=== PATIENT | male | born 1955 | race Caucasian/White ===

== ENCOUNTER → 2017-07-25 | Outpatient (CLI) | payer MEDICARE, OTHER ==
[2017-03-16 11:00] VITALS: BP 124/75
[~2017-07-25] MED LIST: CARI350T14 PO; DEXT10TA2 PO; FINA5TAB4 PO; FLUO20CA8 PO; GADOBUTROL 10 MMOL/10 ML VIAL IV ONE; LAMO200T2 PO; LEVO100T5 PO; LOSA1TAB19 PO; MELO15TA23 PO; MORP30TA PO; OLAN20TA7 PO; OMEP40CA5 PO; RISP3TAB3 PO; SIMV40TA3 PO; TAMS0.4C2 PO; ZOLP10TA4 PO
--- NOTE | 2017-07-25 09:08 | RAD ---
MRI Brain with and without contrast History: Lung cancer Technique: Multiplanar, multi sequential pre and postcontrast MR imaging was performed of the brain. Contrast: 10 cc Gadavist Comparison: None Findings: There is mild motion. There is no evidence of recent infarct or cytotoxic edema. The ventricles, sulci, and cisterns are within normal limits in size and configuration. There is no significant midline shift, intraaxial mass effect, or focal abnormal extra-axial fluid collection. There is very minimal T2 and FLAIR hyperintense signal of the periventricular white matter and couple of small foci in the deep white matter not associated with enhancement, may be seen with very minimal gliosis such as related to chronic microvascular ischemic disease. There is no nodular parenchymal or leptomeningeal enhancement. There is preservation of the major intracranial flow-voids at the skull base. The cerebellar tonsils are normal in location. There is no significant abnormality of the pineal gland or pituitary gland. Paranasal sinuses are mostly aerated, minimal patchy ethmoid air cell and maxillary sinus mucosal thickening. The mastoid air cells are mostly aerated, small focus of fluid on right. There is preserved marrow signal of the clivus. Impression: 1. There is no abnormal intracranial enhancement. Electronically signed by: Serg Castañeda MD (07/25/2017 9:04 AM) [id number]
== END | disposition home or self-care (01) ==
LOC: MRI 07:58
PROVIDERS: ATTEND Internal Medicine Hematology & Oncology
DX: C34.12 Malignant neoplasm of upper lobe, left bronchus or lung (principal)
CPT/HCPCS: 70553; A9585

== ENCOUNTER 2017-08-09 08:19 | Outpatient (CLI) | payer MEDICARE, OTHER ==
[2017-08-09 09:11] LABS: ADD MAN DIFF? NO
[2017-08-09 09:24] LABS: ANION GAP 8 (6-14); BASO % 1 % (0-3); BLOOD UREA NITROGEN 28 mg/dL (8-26); CALCIUM 9.1 mg/dL (8.5-10.1); CARBON DIOXIDE 31 mmol/L (21-32); CHLORIDE 103 mmol/L (98-107); CREATININE 1.1 mg/dL (0.7-1.3); EOS % 0 % (0-3); GFR 68.1; GLUCOSE 116 mg/dL (70-99); HEMATOCRIT 33.9 % (39.0-53.0); HEMOGLOBIN 11.2 g/dL (13.0-17.5); LYMPH # 1.6 x10^3/uL (1.0-4.8); LYMPH % 52 % (24-48); MEAN CORPUSCULAR HEMOGLOBIN 31 pg (25-35); MEAN CORPUSCULAR HGB CONC 33 g/dL (31-37); MEAN CORPUSCULAR VOLUME 94 fL (79-100); MONO # 0.1 x10^3/uL (0.0-1.1); MONO % 3 % (0-9); NEUT # 1.4 x10^3uL (1.8-7.7); NEUT % 45 % (31-73); PLATELET COUNT 92 x10^3/uL (140-400); POTASSIUM 4.5 mmol/L (3.5-5.1); RED CELL DISTRIBUTION WIDTH 17.1 % (11.5-14.5); SODIUM 142 mmol/L (136-145); WHITE BLOOD COUNT 3.1 x10^3/uL (4.0-11.0)
[2017-08-09 09:35] LABS: PROTHROMBIN TIME PATIENT 12.9 SEC (11.7-14.0)
[2017-08-09] MEDS ORDERED: LIDOCAINE 2%/EPI 1:100,000 20 ML VIAL. (10:27)
[2017-08-09] MEDS ORDERED: HEPARIN PF 500 UNIT/5 ML DISP.SYRIN. IV ×2 (10:32→11:15)
[2017-08-09] MEDS ORDERED: fentaNYL PF VIAL 100 MCG/2 ML VIAL (10:54)
[2017-08-09] MEDS ORDERED: MIDAZOLAM HCL/PF 5 MG/5 ML VIAL. (10:54)
[2017-08-09] MEDS: LIDOCAINE 2%/EPI 1:100,000 20 ML VIAL. IJ (11:31)
[2017-08-09] MEDS: MIDAZOLAM HCL/PF 5 MG/5 ML VIAL. IV (11:32)
[2017-08-09] MEDS: fentaNYL PF VIAL 100 MCG/2 ML VIAL IV (11:32)
[2017-08-09] MEDS: HEPARIN PF 500 UNIT/5 ML DISP.SYRIN. IV (11:33)
== END 2017-08-09 13:30 | disposition home or self-care (01) ==
LOC: INTRAD 08:19
DX: C34.90 Malignant neoplasm of unspecified part of unspecified bronchus or lung (principal); E78.00 Pure hypercholesterolemia, unspecified; I10 Essential (primary) hypertension; F17.200 Nicotine dependence, unspecified, uncomplicated; D64.9 Anemia, unspecified; Z87.39 Personal history of other diseases of the musculoskeletal system and connective tissue; Z86.39 Personal history of other endocrine, nutritional and metabolic disease; Z79.01 Long term (current) use of anticoagulants
CPT/HCPCS: 36415; 36561; 76937; 77001; 80048; 85025; 85610; 99152; 99153; C1751; C1892; J0690; J2250; J3010; J3490

== ENCOUNTER → 2017-08-15 | Outpatient (CLI) | payer MEDICARE, OTHER | END | disposition home or self-care (01) | LOC: PETSC 06:28 | DX: C34.12 Malignant neoplasm of upper lobe, left bronchus or lung (principal) | CPT/HCPCS: 78815; A9552 ==

== ENCOUNTER → 2017-08-26 | Outpatient (CLI) | payer MEDICARE, OTHER | END | disposition home or self-care (01) | LOC: US 11:48 | DX: M25.442 Effusion, left hand (principal); M79.89 Other specified soft tissue disorders | CPT/HCPCS: 93971 ==

== ENCOUNTER → 2017-12-05 | Outpatient (CLI) | payer MEDICARE, OTHER | END | disposition home or self-care (01) | LOC: PETSC 14:57 | DX: C34.12 Malignant neoplasm of upper lobe, left bronchus or lung (principal); K57.30 Diverticulosis of large intestine without perforation or abscess without bleeding; Z45.2 Encounter for adjustment and management of vascular access device | CPT/HCPCS: 78815; A9552 ==

== ENCOUNTER → 2018-02-13 | Outpatient (CLI) | payer MEDICARE, OTHER | END | disposition home or self-care (01) | LOC: PETSC 14:23 | DX: C34.12 Malignant neoplasm of upper lobe, left bronchus or lung (principal) | CPT/HCPCS: 78815; A9552 ==

== ENCOUNTER → 2018-04-17 | Outpatient (CLI) | payer MEDICARE, OTHER ==
[2017-08-09 12:30] VITALS: BP 106/65
[~2018-04-17] MED LIST changes: +CHOL10003 PO; +DOCO1CAP2 PO; +FOLI1TAB16 PO; -GADOBUTROL 10 MMOL/10 ML VIAL IV ONE; +MORP100T30 PO; +TEST200V3 IM
--- NOTE | 2018-04-17 10:00 | RAD ---
FDG tumor localization scan, PET/CT, 04/17/2018: History: Restaging lung cancer Following IV injection of 13.3 mCi of 18 F-FDG, imaging was performed from the skull base to the proximal fossa. The noncontrast CT component was performed for attenuation correction and anatomic localization purposes rather than for primary diagnosis. The patient's blood glucose level at the time of injection was 126 MG/DL. Comparison is made to a study from 02/13/2018. The left upper lobe hypermetabolic mass has increased in size. It currently measures 7.4 x 5.4 cm on the axial scans compared to a maximum diameter of 5.8 cm on the previous study. There appears to be extension into the superior segment left lower. An elongated anterior extension of this density has thickened slightly. The maximum SUV is 11.0 compared to value of 10.4 on the previous study. This process is inseparable from hypermetabolic tissue at the left hilum. There is a separate 12 mm hypermetabolic node along the lateral aspect of the AP window which appears to have increased slightly in size. It demonstrates a maximum SUV of 6.0, similar to on the previous study. No new mediastinal adenopathy is seen. The right lung is unremarkable. Physiologic activity is present in the neck. No hypermetabolic neck lesion is seen. Normal GI tract and urinary tract activity is present in the abdomen and pelvis. No hypermetabolic abdominal or pelvic lesion is seen. IMPRESSION: 1. Enlarging hypermetabolic left upper lobe pulmonary malignancy. 2. Minimal AP window adenopathy has also progressed slightly. 3. No distant metastatic disease is identified.
== END | disposition home or self-care (01) ==
LOC: PETSC 07:22
PROVIDERS: ATTEND Internal Medicine Hematology & Oncology
DX: C34.12 Malignant neoplasm of upper lobe, left bronchus or lung (principal); R59.0 Localized enlarged lymph nodes; I10 Essential (primary) hypertension; E78.00 Pure hypercholesterolemia, unspecified; E87.6 Hypokalemia; Z86.2 Personal history of diseases of the blood and blood-forming organs and certain disorders involving the immune mechanism; Z87.891 Personal history of nicotine dependence; Z86.39 Personal history of other endocrine, nutritional and metabolic disease; Z87.39 Personal history of other diseases of the musculoskeletal system and connective tissue; Z82.49 Family history of ischemic heart disease and other diseases of the circulatory system; Z80.0 Family history of malignant neoplasm of digestive organs; Z80.1 Family history of malignant neoplasm of trachea, bronchus and lung
CPT/HCPCS: 78815; A9552

== ENCOUNTER → 2018-06-03 | Day surgery (SDC) | payer MEDICARE, OTHER ==
[~2018-06-03] MED LIST changes: +IV RINGERS,LACTATED 1000ML 1,000 ML IV SCH; +PROPOFOL 20 ML IV ONE; +PROPOFOL 40 ML IV ONE
[2018-06-03 16:25] VITALS: BP 104/55
--- NOTE | 2018-06-05 16:08 | PATHOLOGY ---
[facility] Accession Number: [id number] . 01 Material submitted: . TRANSVERSE COLON POLYP . 01 Clinical history: . Hx polyps . 02 Diagnosis: Transverse, biopsy: - Adenomatous polyp. . (SKM:yenny; 06/05/2018) MBR/06/05/2018 . 02 Electronically signed: . Stefan Rivera MD, Pathologist NPI- [id number] . 01 Gross description: . Received in formalin labeled "Timmy Murphy Jr, transverse colon polyp," are multiple segments of garcia soft tissue admixed with vegetative material measuring 2.5 x 1.9 x 0.2 cm in aggregate dimensions. The specimen is filtered and entirely submitted in cassette A1. (TSD; 06/04/2018) TOB/TOB . 02 Pathologist provided ICD-10: D12.3 . 02 CPT . 585753 Specimen Comment: A courtesy copy of this report has been sent to Specimen Comment: [phone]. Specimen Comment: Report sent to Performed at: 01 [facility] [address] [facility] [address], [place] [id number] MD Andrew Miramontes MD Phone: [phone] Performed at: [facility] [address] [place], [place] [id number] MD Navin Flynn MD Phone: [phone]
== END | disposition home or self-care (01) ==
LOC: ENDOS 15:02
PROVIDERS: ATTEND Internal Medicine Gastroenterology
DX: Z12.11 Encounter for screening for malignant neoplasm of colon (principal); D12.3 Benign neoplasm of transverse colon; K64.0 First degree hemorrhoids; K22.2 Esophageal obstruction; K29.50 Unspecified chronic gastritis without bleeding; I10 Essential (primary) hypertension; E03.9 Hypothyroidism, unspecified; F41.9 Anxiety disorder, unspecified; E78.00 Pure hypercholesterolemia, unspecified; K21.9 Gastro-esophageal reflux disease without esophagitis; N40.0 Benign prostatic hyperplasia without lower urinary tract symptoms; M19.90 Unspecified osteoarthritis, unspecified site; Z86.010 Personal history of colon polyps; Z85.118 Personal history of other malignant neoplasm of bronchus and lung; Z82.49 Family history of ischemic heart disease and other diseases of the circulatory system; Z83.71 Family history of colonic polyps; Z72.0 Tobacco use; Z79.899 Other long term (current) drug therapy; Z98.890 Other specified postprocedural states
CPT/HCPCS: 43235; 43450; 45385; 88305; J2704; 45380

== ENCOUNTER → 2018-07-17 | Outpatient (CLI) | payer MEDICARE, OTHER ==
[2018-06-03 16:25] VITALS: BP 104/55
[~2018-07-17] MED LIST changes: -IV RINGERS,LACTATED 1000ML 1,000 ML IV SCH; -PROPOFOL 20 ML IV ONE; -PROPOFOL 40 ML IV ONE
--- NOTE | 2018-07-17 15:14 | RAD ---
PET ONCOLOGY CLINICAL INDICATION: Lung cancer PET for subsequent treatment strategy. FDG PET-CT of the Body TECHNIQUE: The patient received an IV injection of 14.4 mCi 18F-FDG. After an initial uptake phase of approximately 60-90 minutes, a CT scan without oral contrast, without IV contrast was acquired. Subsequently, positron emission tomography images from the skull base to mid thigh were obtained. CT, PET and fused images were reconstructed in transaxial, coronal, and sagittal projections and interpreted from a workstation. The patient's plasma glucose was 157 mg/dl. PRIOR STUDIES: 04/17/2018 CORRELATIVE STUDIES: There are no appropriate correlative studies FINDINGS: CT: Limited exam due to lack of IV contrast. Noncontrast sections through the brain and orbits are within normal limits. No enlarged cervical adenopathy. Heart is normal in size. No pericardial or pleural effusion. Interval increase in the size of left upper lobe mass measuring 7.6 x 6.8 cm, previously 7.0 x 5.6 cm. There is worsening of suprahilar component of this mass measuring 11.1 x 4.3 cm, previously 9.1 x 4.0 cm. Aortopulmonary recess lymph node is seen measuring 2.0 x 1.2 cm, previously 1.7 x 1.0 cm. Evaluation of hilar lymphadenopathy is limited due to lack of IV contrast. No axillary adenopathy. Mild diffuse emphysema. Evaluation of lungs is limited due to breathing motion artifact. No pneumothorax. Noncontrast appearance of the liver, spleen, gallbladder, pancreas, adrenals and kidneys within normal limits. No enlarged retroperitoneal or pelvic adenopathy. No free pelvic fluid or ascites. No bowel obstruction. Urinary bladder demonstrates no radiopaque stones. No lytic or blastic osseous lesions. Interval increase in the size of medial left apical soft tissue nodule measuring 2.0 x 1.6 m, previously 1.1 x 0.9 cm. PET: Increased metabolic activity in the Left medial apical soft tissue nodule with SUV max of 5.2. Increased metabolic activity in the Left upper lobe mass with SUV max of 6.2. Increased metabolic activity in the aortopulmonary recess lymph node with SUV max of 7.2. Increased metabolic activity in the suprahilar component of the left upper lobe mass with SUV max of 8.9. IMPRESSION: 1. Interval increase in the size of left upper lobe mass with suprahilar component as described above. 2. Multiple sites of increased metabolic activity as described above. Electronically signed by: Cedric Mitchell DO (07/17/2018 3:10 PM) [facility]
== END | disposition home or self-care (01) ==
LOC: PETSC 09:41
PROVIDERS: ATTEND Internal Medicine Hematology & Oncology
DX: C34.12 Malignant neoplasm of upper lobe, left bronchus or lung (principal); R91.8 Other nonspecific abnormal finding of lung field
CPT/HCPCS: 78815; A9552

== ENCOUNTER → 2018-10-16 | Outpatient (CLI) | payer MEDICARE, OTHER ==
[2018-06-03 16:25] VITALS: BP 104/55
[~2018-10-16] MED LIST changes: +OLAN20TA15 PO; -OLAN20TA7 PO
--- NOTE | 2018-10-16 10:27 | RAD ---
FDG tumor localization scan, PET/CT, 10/16/2018: History: Restaging lung cancer Following IV injection of 14.7 mCi of 18 F-FDG, imaging was performed from the skull base to the proximal thighs. The noncontrast CT component was performed for attenuation correction and anatomic localization purposes rather than for primary diagnosis. The patient's blood glucose level at time of injection was 147 MG/DL. Comparison is made to a study from 07/17/2018. There is extensive muscular uptake on the current exam on a technical basis. This degree of muscular uptake presumably hinders accurate comparison of the current SUV values with the previous study. A large lobulated hypermetabolic left upper lobe mass is again identified. It is of similar size and configuration when compared to the 07/17/2018 exam. It measures approximate 7.5 cm in greatest width. Its maximum SUV is currently 9.5 compared to value 11.2 on the previous study. A separate hypermetabolic mass is present medially in the left apex. It has increased in size since the previous study currently measuring 2.8 cm in AP dimension compared to 2.3 cm on the previous study. Its maximum SUV is 5.7 compared to a value of 6.7 on the previous study. On the previous study a small hypermetabolic lymph node was present along the lateral aspect of the AP window. It measured 12 x 18 mm with a maximum SUV of 7.9. That node has decreased in size and is no longer hypermetabolic. It measures 6 mm in width on the current exam. No new hypermetabolic lesion is identified in the chest. Physiologic activity is evident in the neck. Normal GI tract and urinary tract activity is present in the abdomen and pelvis. No hypermetabolic abdominal or pelvic lesion is seen. IMPRESSION: Mixed response to therapy with 1. No definite change in the large left upper lobe hypermetabolic pulmonary mass. 2. Regression of a small hypermetabolic AP window lymph node. 3. Slight interval increase in size of a separate medial left apical pulmonary mass.
== END | disposition home or self-care (01) ==
LOC: PETSC 07:41
PROVIDERS: ATTEND Internal Medicine Hematology & Oncology
DX: C34.12 Malignant neoplasm of upper lobe, left bronchus or lung (principal); R91.8 Other nonspecific abnormal finding of lung field; R53.83 Other fatigue
CPT/HCPCS: 78815; A9552

== ENCOUNTER → 2018-12-25 | Outpatient (CLI) | payer MEDICARE, OTHER ==
[2018-06-03 16:25] VITALS: BP 104/55
--- NOTE | 2018-12-25 12:37 | RAD ---
FDG tumor localization scan, PET/CT, 12/25/2018: History: Restaging lung cancer Following IV injection of 15.6 mCi of 18 F-FDG, imaging was performed from the skull base to the proximal thighs. The noncontrast CT component was performed for attenuation correction and anatomic localization purposes rather for primary diagnosis. The patient's blood glucose level at the time of injection was 131 MG/DL. Comparison is made to a study from 10/16/2018. The large left upper lobe mass has increased slightly in size. On the axial images it currently measures 8.0 cm in greatest width compared to a measurement of 7.5 cm on the previous study. The maximum SUV within this mass is currently 14.7 compared to a value of 9.5 on the previous study. The separate mass in the medial aspect of the left apex has also increased slightly in size currently measuring 3.0 x 2.6 cm compared to a measurement of 2.7 x 2.3 cm on the previous study. Its maximum SUV is 9.6 compared to a value of 5.7 on the previous study. There is low level FDG uptake related to an AP window lymph node with a maximum SUV of 3.4. This node or node clusters of similar size when compared to the previous study, measuring approximately 13 mm in short axis dimension. No abnormal FDG uptake was seen at this level on the previous study. Note is made that there was extensive muscular uptake on the previous study which may have decreased FDG uptake by pathologic lesions on that study. Normal GI tract and urinary tract activity is present in the abdomen and pelvis. No hypermetabolic abdominal or pelvic mass is seen. Incidental CT findings include the presence of emphysematous changes in the lungs. There are scattered streaky linear opacities compatible with scarring. A right Port-A-Cath extends into the superior vena cava. IMPRESSION: 1. Slight interval increase in size of the left upper lobe and left apical masses with increasing FDG uptake. 2. Low level FDG uptake has developed in a mildly enlarged AP window lymph node. 3. No distant metastatic disease is detected. Physiologic activity is present in the neck. No abnormal FDG uptake is seen in the neck.
== END | disposition home or self-care (01) ==
LOC: PETSC 09:36
PROVIDERS: ATTEND Internal Medicine Hematology & Oncology
DX: C34.12 Malignant neoplasm of upper lobe, left bronchus or lung (principal); J43.9 Emphysema, unspecified; R91.8 Other nonspecific abnormal finding of lung field
CPT/HCPCS: 78814; A9552

== ENCOUNTER → 2019-04-02 | Outpatient (CLI) | payer MEDICARE, OTHER ==
[2018-06-03 16:25] VITALS: BP 104/55
--- NOTE | 2019-04-03 11:11 | RAD ---
Examination: PET W CT SKULL TO MIDTHIGH HISTORY: Lung cancer restaging COMPARISON/CORRELATION: 12/25/2018 PET/CT exam FINDINGS: Net dose 14.1 mCi F-18 FDG was administered intravenously for purposes of PET/CT exam. Blood glucose level at the time of radiotracer administration was 120 mg/dL. Imaging was performed from the skull base to the proximal thighs. Hepatic reference uptake is SUV max of 2.2 . Uptake of radiotracer involving the partially visualized head and neck is unremarkable. At the left apical level medially, there is increase in size of the mass which was previously seen. Currently it measures up to 3.5 cm x 3.4 cm and this represents interval increase by 0.7 cm. Uptake of the margin of this mass is noted with SUV max of 4.7. Central lack of uptake presumably representing necrotic components are evident. Mass involving the left upper thorax abutting the pleura is present posteriorly. This mass abuts the thoracic aorta at the distal arch. It measures up to 9.3 cm x 8.1 cm. This represents increase in size by 1.5 cm in the axial plane. This mass extends to the left hilum as on the prior exam. SUV maximum periphery of this mass of up to 9.2 is evident. Central lack of uptake of radiotracer is evident presumably representing necrotic components. There is no pulmonary window lymph nodes are again evident without significant change in size. SUV max of up to 2.6 is evident involving these lymph nodes. Emphysematous involvement of the lung stein is noted. No new pulmonary nodule or new infiltrate. Slight increase of a small left pleural effusion is noted in the interval. Uptake of radiotracer involving the abdomen and pelvis is unremarkable. Deformity of the right iliac bone near the sacrum is again noted. Correlate with previous intervention. IMPRESSION: Increase in size of the left lung masses with uptake in the periphery consistent with active neoplastic disease. Increased in small left pleural effusion. No significant change in the aorticopulmonary window lymph nodes. No new sites of abnormal radiotracer uptake. PQRS Compliance Statement: One or more of the following individualized dose reduction techniques were utilized for this examination: 1. Automated exposure control 2. Adjustment of the mA and/or kV according to patient size 3. Use of iterative reconstruction technique Electronically signed by: Jarad Hogan MD (04/03/2019 11:08 AM) [facility]
== END | disposition home or self-care (01) ==
LOC: PETSC 08:47
PROVIDERS: ATTEND Internal Medicine Hematology & Oncology
DX: C34.12 Malignant neoplasm of upper lobe, left bronchus or lung (principal); R91.8 Other nonspecific abnormal finding of lung field; J90 Pleural effusion, not elsewhere classified; J43.9 Emphysema, unspecified
CPT/HCPCS: 78815; A9552

== ENCOUNTER → 2019-05-29 | Outpatient (CLI) | payer MEDICARE, OTHER ==
[2018-06-03 16:25] VITALS: BP 104/55
[~2019-05-29] MED LIST changes: +OMEP40CA45 PO; -OMEP40CA5 PO
--- NOTE | 2019-05-31 11:37 | RAD ---
EXAM: PET/CT SKULL BASE TO MID THIGH. HISTORY: Lung cancer, restaging COMPARISON: 04/02/2019. TECHNIQUE: CT was performed from the skull base through the mid thighs for the purposes of attenuation correction. 13.87 mCi F-18 fluorodeoxyglucose (FDG) was administered intravenously. After an uptake period, positron emission tomography was performed from the skull base through the mid thighs. The PET and CT data were fused and interpreted in combination a dedicated workstation. Blood glucose level was 118 mg/dL at the time of FDG administration. FINDINGS: A large left upper lobe mass abutting the posterior and medial pleura measures 8.9 x 8.2 cm. Previously this measured 9.0 x 9.2 cm. This is contiguous with enlarged left hilar lymph nodes. It is centrally hypometabolic consistent with necrosis. Maximum SUV is 12.3. Hypermetabolism extends inferiorly along the left lateral pleura and major fissure, and into the lingula in the regions that measure proximally 6 cm in each. This may represent postobstructive pneumonitis or additional neoplasm. Maximum SUV is 11.2. Another mass in the left apex is inseparable from the superior mediastinal pleura and measures 3.9 x 3.7 cm as compared with 3.6 x 3.7 cm previously. It is centrally hypometabolic consistent with necrosis. Maximum SUV is 8.1. A small focus of uptake along the lateral margin of the left pectoralis minor muscle is not associated with an abnormality on CT and may be muscular. Relatively focal uptake along the ileocecal valve demonstrates maximum SUV 7.7. There is no clear mass at this site and this may be from peristalsis. Uptake within the subcutaneous fat overlying the left greater trochanter is likely inflammatory or posttraumatic. Additional CT findings include changes suggesting right internal hernia repair. Calcified left hilar lymph nodes are consistent with old granulomatous disease. A right port catheter has its tip in the superior cavoatrial junction. There is moderate centrilobular emphysema. IMPRESSION: 1. Large left upper lobe masses appear slightly larger in apex and slightly smaller more inferiorly. The degree of hypermetabolism appears increased, but there may be technical differences. 2. A large nonmass-like region of hypermetabolism inferior to the main mass has developed in the interval. This may represent active pneumonitis, though progression of disease cannot be excluded. 3. No clear distant metastases are identified.
== END | disposition home or self-care (01) ==
LOC: PETSC 15:58
PROVIDERS: ATTEND Internal Medicine Hematology & Oncology
DX: C34.12 Malignant neoplasm of upper lobe, left bronchus or lung (principal); J43.2 Centrilobular emphysema
CPT/HCPCS: 78815; A9552

== ENCOUNTER → 2019-06-23 | Outpatient (CLI) | payer MEDICARE, OTHER ==
[2018-06-03 16:25] VITALS: BP 104/55
[~2019-06-23] MED LIST changes: +GADOTERATE 7.5 MMOL/15ML VIAL. IVP ONE; -LAMO200T2 PO; +LAMO200T6 PO; +SIMV40TA18 PO; -SIMV40TA3 PO
--- NOTE | 2019-06-23 16:29 | RAD ---
EXAMINATION: Magnetic resonance imaging (MRI) of the brain and brainstem without and with contrast 06/23/2019 2:45 PM HISTORY: Confusion with history of lung cancer. TECHNIQUE: Multiplanar multi-weighted MRI of the brain and brainstem was performed without and with intravenous contrast using the general brain protocol. Contrast information: 18 mL Gadolinium based contrast COMPARISON: MRI brain 07/25/2017 FINDINGS: The scalp and calvarium are normal. The superior sagittal sinus demonstrates normal venous flow. The corpus callosum is normal in shape and signal intensity. The posterior fossa is unremarkable. The pituitary and sella are normal. The brainstem and craniocervical junction are unremarkable.. There are T2/FLAIR signal hyperintense foci in the periventricular and subcortical white matter most suggestive of mild chronic small vessel ischemic changes. Diffusion weighted images reveal no hyperintensities to suggest acute cerebral infarction. The susceptibility weighted sequences reveal no evidence of acute or chronic hemorrhage. Ventricles, sulci and basal cisterns are prominent compatible with mild generalized cerebral line loss. There are no areas of abnormal contrast enhancement. The paranasal sinuses are normal. The visualized portions of the mastoids are unremarkable. The orbits appear normal. Normal flow voids are demonstrated in the carotid arteries and basilar artery. 9 mm subcutaneous nodule identified along the right suprazygomatic temporal subcutaneous soft tissues. IMPRESSION: No evidence for intracranial metastatic disease. 9 mm subcutaneous nodule identified along the right suprazygomatic temporal subcutaneous soft tissues. Findings may represent a pilar cyst. Electronically signed by: Chacha Summers MD (06/23/2019 4:26 PM) [id number]
== END | disposition home or self-care (01) ==
LOC: MRI 14:08
PROVIDERS: ATTEND Internal Medicine Hematology & Oncology
DX: R22.0 Localized swelling, mass and lump, head (principal); Z85.118 Personal history of other malignant neoplasm of bronchus and lung
CPT/HCPCS: 70553; A9575